=== PATIENT | female | born 2005 | race Caucasian/White ===

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

== ENCOUNTER 2023-04-13 08:15 | Outpatient (RCR) | payer BC, SELFPAY | END 2023-04-15 11:25 | disposition home or self-care (01) | PROVIDERS: PCP Pediatrics; Visit Provider Pediatrics | DX: M54.40 Lumbago with sciatica, unspecified side (principal); M43.06 Spondylolysis, lumbar region; M51.36 Other intervertebral disc degeneration, lumbar region; M47.819 Spondylosis without myelopathy or radiculopathy, site unspecified; Z51.89 Encounter for other specified aftercare | CPT/HCPCS: 97110; 97140; 97161 ==

== ENCOUNTER 2024-05-11 09:30 | Outpatient (RCR) | payer BC, SELFPAY ==
--- OUTSIDE RECORDS SUMMARY | 2024-02-17 07:55 | XMS_ITS | Continuity of Care Document ---
Author Name [email or web address] Address Unknown Organization Unknown Address Unknown Procedures FILTER APPLIED:Only known Procedures with Onset Date within the last 5 years Procedure Date Procedure Provider Additional Inform ation Status THERAPEUTIC EXERCISES (99554) Completed PT EVAL LOW COMPLEX 20 MIN (44360) Completed MANUAL THERAPY 1/ [facility] (49867) Completed Encounters FILTER APPLIED:Only known Encounters with Admission Date within the last 5 years Encounter Location Admission Discharge Billing Code Railroad Maintenance Clerk [facility] Outpatient Sheri Capps
--- OUTSIDE RECORDS SUMMARY | 2024-02-17 07:55 | XMS_ITS | Clinical Summary ---
Author Organization [facility] Address [address] [place] [id number] Care Team Providers Care Stock Sheets Cleaner Inspector Name Role Phone Sheri Capps MD Primary Care Provider [phone] Medications magnesium oxide (MAG-OX) 400 MG tablet Take 400 mg by mouth daily 0 12/16/2018 Active propranolol (INDERAL) 40 MG tablet Take 40 mg by mouth 2 times daily 11 07/29/2018 Active riboflavin (VITAMIN B-2) 100 MG TABS tablet Take 400 mg by mouth daily 0 12/16/2018 Active Cyanocobalamin (B-12) 1000 MCG TBCR Take 500 mcg by mouth Active vitamin D3 (CHOLECALCIFEROL ) 1.25 MG (06062 UT) capsule Take 400 Units by mouth every 7 days Active Active Problems Problem Noted Date Diagnosed Date Autonomic dysfunction 01/10/2019 Social History Tobacco Use Types Packs/Day Years Used Date Smoking Tobacco: Never Smokeless Tobacco: Never PHQ-2 Answer Date Recorded PHQ-2 Score 0 01/10/2019 Comments Unknown Sex and Gender Information Value Date Recorded Sex Assigned at Not on file Legal Sex Female 3:58 PM COSTUME SEAMSTRESS Gender Identity Not on file Sexual Orientation Not on file Last Filed Vital Signs Vital Sign Reading Time Taken Comments Blood Pressure 101/61 01/10/2019 8:13 AM COSTUME SEAMSTRESS Pulse 79 01/10/2019 8:13 AM COSTUME SEAMSTRESS Temperature - - Respiratory Rate 20 01/10/2019 8:11 AM COSTUME SEAMSTRESS Oxygen Saturation 99% 01/10/2019 8:11 AM COSTUME SEAMSTRESS Inhaled Oxygen Concentration - - Weight 61.4 kg (135 lb 5.8 oz) 01/10/2019 8:11 A M COSTUME SEAMSTRESS Height 164.2 cm (5' 4.65) 01/10/2019 8:11 AM CS T Body Mass Index 22.77 01/10/2019 8:11 AM COSTUME SEAMSTRESS Plan of Treatment Not on file Care Teams Stock Sheets Cleaner Inspector Relationship Specialty Start Date End Date Sheri Capps MD PCP - General Pediatrics 01/09/19
--- OUTSIDE RECORDS SUMMARY | 2024-02-17 07:55 | XMS_ITS | Clinical Summary ---
Author Organization [facility] Address [place], [place] [address] Care Team Providers Care Universal Grinder Set Up Operator Name Role Phone Sheri Capps MD Primary Care Provi alice Allergies Active Allergy Reactions Criticality Noted Date Comments Gluten Dizziness,Headache,N ause a And Vomiting 08/28/2019 Other reaction(s): Other (see comments) Prochlorperazine Respiratory Distress,Other - Describe In Comment Field,Dyspnea High 06/27/2019 Neck spasms Other reaction(s): GI intolerance Neck spasms Medications ketorolac (TORADOL) 30 mg/mL injectionIndic ations:Migrain e without aura and without status migrainosus, not intractable Inject 1 mL BY intramuscular ROUTE once daily if needed for Pain. 4 mL 02/03/20 24 Active ketorolac (TORADOL) 30 mg/mL injectionIndic ations:Migrain e without aura and without status migrainosus, not intractable Inject 1 mL (30 mg) intramuscular every 6 hours if needed for Pain. 5 mL 1 12/18/19 23 2023 Discontinued Active Problems Problem Noted Date Diagnosed Date Nasal turbinate hypertrophy 08/17/2019 Sinus pain 08/17/2019 Celiac disease 02/21/2019 Autonomic dysfunction 01/10/2019 Frequent headaches 09/15/2017 Ventricular septal defect Overview (12/28/2007): small and per cardiology no SBE prophylaxis needed Resolved Problems Problem Noted Date Diagnosed Date Resolved Date Tonsillar and adenoid hypertrophy 12/28/2007 05/29/2009 Encounters Date Type Department Care Team Description 01/31/[address] [facility] [address] [place] [address] Sheri Capps MD Refill Request (Ketorolac) from Last 3 Months Immunizations Name Administration Dates Next Due AMB Influenza, (Flumist) Laure e Intranasal,LAIV4 (Flu Clinic Only) 12/16/2007 DTaP 08/04/2004 SJeL-RasL-NEN (Pediarix) 2003,2003,0 2003 DTaP-IPV (Kinrix) 05/24/2008 HIB PRP-OMP (PedvaxHIB) 08/04/2004,11/06,2003,07/04 Hepatitis A (Peds) 05/29/2009,05/24/2008 Influenza, IIV3 (Age >=3 years) 12/20/2012,01/14 Influenza, IIV4 01/26/2019,11/19/2015,01/16/2014 Influenza, IIV4 (=>6mos) MDV 12/09/2017,12/09/19 17 MENINGOCOCCAL VACCINE 2 VIAL 2MO-55YO (MENVEO) 08/17/2019,09/17/2015 MMR 05/24/2008,05/05/2004 Pneumococcal conj 7-Valent (Prevnar 7) 0 08/04/2004,2003,2003,07/04 Tdap 09/17/2015 Varicella Vaccine 05/24/2008,05/05/2004 Family History Medical History Relation Name Comments Other Father migraines Arthritis Mother Diabetes Other maternal great grandpa Arthritis Sister Anesthesia Problem No Family History Blood Disease No Family History Cancer-breast No Family History Cancer-colon No Family History Heart Disease No Family History Hyperlipidemia No Family History Hypertension No Family History Relation Name Status Comments Father Mother Other Sister Social History Tobacco Use Types Packs/Day Years Used Date Smoking Tobacco: Never Smokeless Tobacco: Never Tobacco Cessation:Counseling Given: No Comments:No exposure Alcohol Use Standard Drinks/Week Comments No 0 (1 standard drink = 0.6 oz pur e alcohol) PHQ-2 Answer Date Recorded PHQ-2 TOTAL SCORE 0 12/17/2022 Social Connections Answer Date Recorded Do you often feel lonely or isolated from those around you? 0 12/17/2022 Financial Resource Strain Answer Date R ecorded Difficulty of Paying Living Expenses 3 12/17/2022 Difficulty of Paying Living Expenses Not on file 12/17/2022 Food Insecurity Answer Date Recorded Do you worry your food will run out before you are able to buy more? 1 12/17/2022 Transportation Needs Answer Date Record ed Does lack of transportation keep you from medica l appointments? 1 12/17/2022 Does lack of transportation keep you from work, meetings or getting things that you need? 1 12/17/2022 Housing Stability Answer Date Recorded What is your housing situation today? 1 12/17/2022 Comments No Sex and Gender Information Value Date Recorded Sex Assigned at Not on file Legal Sex Female 7:03 AM INDUSTRIAL PHARMACIST Gender Identity Not on file Sexual Orientation Not on file Obstetrics History Para Term AB IAB SAB Ectopic Multiple Livin g Live Births 0 0 0 0 0 0 0 0 0 0 0 Last Filed Vital Signs Vital Sign Reading Time Taken Comments Blood Pressure 106/66 12/17/2022 10:18 AM CDT Pulse 80 12/17/2022 10:18 AM CDT Temperature 36.9 C (98.4 F) 11/17/2021 3:22 PM CDT Respiratory Rate 16 03/13/2021 6:21 PM INDUSTRIAL PHARMACIST Oxygen Saturation 100% 12/17/2022 10:18 AM CDT Inhaled Oxygen Concentration - - Weight 63.3 kg (139 lb 9.6 oz) 12/17/2022 10:18 AM CDT Height 166.2 cm (5' 5.43) 12/17/2022 10:18 AM C DT Body Mass Index 22.92 12/17/2022 10:18 AM CDT Plan of Treatment Health Maintenance Due Date Last Done Comments HIV for age 15-65 05/02/2018 HPV series for age 9-26 (1 - 3-dose series) 05/02/2018 Hepatitis C screening for ag e 18-79 05/02/2021 Pneumococcal series for age 6-49 (1 of 2 - PCV) 05/02/2022 08/04/2004, 2003, 2003, Additional history exists COVID-19 vaccine series (2023- season) 2023 Influenza for age 9-49 10/17/2023 9, 12/09/2017, 12/08/2016, Additional history exists BMI (ht and wt on same day) for age 18+ 12/18/2023 12/17/2022 Depression screening for age 12+ 12/18/2023 12/17/2022, 04/11/2020, 03/22/2019, Additional history exists Well Child Check for age 3-20 12/18/2023, 05/05/2013, 05/29/2009, Additional history exists Tetanus booster 09/16/2025 09/17/2015 Tdap Completed 09/17/2015 Meningococcal series for age 11-21 Completed 2019, 09/17/2015 Insurance [employer] Care Teams Universal Grinder Set Up Operator Relationship Specialty Start Date End Date Sheri Capps MD [address] [place] [address] PCP - General 12/28/07
--- OUTSIDE RECORDS SUMMARY | 2024-02-17 07:55 | XMS_ITS | Encounter Summary ---
Author Organization [facility] Address [address] [place] [address] Care Team Providers Care Enzyme Chemist Name Role Phone Elsewhere, Pcp Primary Care Provider Unavailabl e Reason for Referral * Outpatient (Routine) - Authorized Specialty Diagnoses / Procedures Referred By Contac t Referred To Contact Diagnoses Chronic Migraine Procedures Botox for Chronic Migraine [place] CHEMODENERV FACIAL TRIGEM BALDOMERO [place] INJECTION,ONABOTULINUMTOXINA Pat Martinez APRN, C.N.P., M.S. [address] [place] [phone] Phone: tel: fax: [facility] Referral ID Status Reason Start Date Expiration Date V isits Requested Visits Authorized [id number] Authorized 12/23/2023 07/11/2024 4 2 ORT DUTY MANAGER Reason for Visit * Outpatient (Routine) - Authorized Specialty Diagnoses / Procedures Referred By Chivo t Referred To Contact Diagnoses Chronic Migraine Procedures Botox for Chronic Migraine [place] CHEMODENERV FACIAL TRIGEM [place]DOM[place] INJECTION,ONABOTULINUMTOXINA Pat Martinez APRN, C.N.P., M.S. [address] [place] [address] Phone: tel: fax: [facility] Referral ID Status Reason Start Date Expiration Date V isits Requested Visits Authorized [id number] Authorized 12/23/2023 07/11/2024 4 2 Encounter Details Date Type Department Care Team (Latest Contact Info) Description 01/14/2024 8:39 AM AIRPORT DUTY MANAGER - 01/14/2024 8:56 AM AIRPORT DUTY MANAGER Hospital Encounter Department of Neurology in [place], [place] [address] [place] [address] Polo Bains M.D., Ph.D. Anahy Ortiz P.A.-C., M.S. [address] [place] [address] Chronic Migraine Discharge Disposition: Home or Self Care Social History Tobacco Use Types Packs/Day Years Used Date Smoking Tobacco: Never Smokeless Tobacco: Never Alcohol Use Standard Drinks/Week Comments Never 0 (1 standard drink = 0.6 oz pur e alcohol) AUDIT-C Answer Date Recorded Q1: How often do you have a drink containing alc ohol? Never 04/29/2020 Average Number of Drinks Not on file 021 Frequency of Binge Drinking Not on file 04/15 PHQ-2 Answer Date Recorded PHQ-2 Score 3 12/22/2018 Nutrition Answer Date Recorded Nutrition: EVOO Fat Source Unknown 04/19 Nutrition: Servings of Fruits/Vegetables per Day Not on file 04/19/2020 Dental Answer Date Recorded Dental: Regular Dentist Unknown 04/20/19 21 Comments No Sex and Gender Information Value Date Recorded Sex Assigned at Not on file Legal Sex Female 4:53 PM AIRPORT DUTY MANAGER Gender Identity Not on file Sexual Orientation Not on file documented as of this encounter Medications at Time of Discharge cholecalciferol (VITAMIN D3) 1,250 mcg (50,000 Unit) capsule Take 400 Units by mouth. cyclobenzaprine (FLEXERIL) 1.25 mg tablet 10 mg. 3 cyproheptadine (PERIACTIN) 4 mg tablet Take 8 mg by mouth. cyproheptadine (PERIACTIN) 4 mg tablet TAKE 1 TABLET BY MOUTH ONCE DAILY AT BEDTIME FOR 1 WEEK, THEN INCREASE TO 2 TABLETS AT BEDTIME DAILY. 1 diclofenac (CATAFLAM) 50 mg tablet Take 50 mg by mouth. 0 Emgality Pen 120 mg/mL injection inject by subcutaneous route once monthly. 0 gabapentin (NEURONTIN) 100 mg capsule Take 300 mg by mouth. gabapentin (NEURONTIN) 300 mg capsule TAKE 1 CAPSULE BY MOUTH TWO TIMES DAILY FOR 4 DAYS, THEN 1 CAPSULE THREE TIMES DAILY 0 galcanezumab-gnlm (EMGALITY) 120 mg/mL injection 0 ketorolac (TORADOL) 10 mg tablet Take 10 mg by mouth. ketorolac (TORADOL) 30 mg/mL injection Inject intramuscularly. 0 magnesium oxide (MAG-OX) 400 mg (241.3 mg magnesium) tablet Take 400 mg by mouth. 9 ondansetron ODT (ZOFRAN-ODT) 4 mg disintegrating tablet Take 4 mg by mouth. rizatriptan (MAXALT) 10 mg tablet Take 1 tablet at the onset of your migraine. May repeat in 2 hours if necessary. Limit to 2 days per week. 0 TENS unit and electrodes (Cefaly) combo pack 1 each daily. 1 each 1 traZODone (DESYREL) 50 mg tablet Take 50 mg by mouth at bedtime. 1 venlafaxine XR (EFFEXOR-XR) 37.5 mg 24 hr capsule TAKE ONE CAPSULE BY MOUTH ONE TIME DAILY WITH A MEAL 1 documented as of this encounter Procedure Notes * nAahy Ortiz P.A.-C., M.S. - 01/14/2024 9:00 AM CSTAssociated Order(s): Botox for Chronic Migraine Pre-Procedure Diagnose(s): Chronic Migraine Post-Procedure Diagnose(s): Chronic Migraine Botox for Chronic Migraine Performed by: Anahy Ortiz P.A.-C., M.S. Authorized by: Pat Martinez APRN, C.N.P., M.S. Care team members present 1. Parag Andrews L.P.N. PROCEDURE DETAILS Pre-procedure pain score: 0/10 Injection of: 100 Units onabotulinumtoxinA 100 unit 50 Units onabotulinumtoxinA 50 unit Needle gauge: 30 Needle length: 0.5 in Injection site details [place] Guide / Procerus muscle(s): 5 units into the left senior reservoir engineer muscle, 5 units into the right senior reservoir engineer muscle and 5 units into the procerus muscle (15 units total). Superior Frontalis muscle(s): 5 units into the left superior frontalis muscle and 5 units into the right superior frontalis muscle (2 injection sites per muscle) (10 units total). Temporalis muscle(s): 12.5 units into the left temporalis muscle and 12.5 units into the right temporalis muscle (2 injection sites per muscle) (25 units total). Splenius Capitis muscle(s): 12.5 units into the left splenius capitis muscle and 12.5 units into the right splenius capitis muscle (2 injection sites per muscle) (25 units total). Occipitalis muscle(s): 12.5 units into the left occipitalis muscle and 12.5 units into the right occipitalis muscle (2 injection sites per muscle) (25 units total). Trapezius muscle(s): 25 units into the left trapezius muscle and 25 units into the right trapezius muscle (3 injection sites per muscle) (50 units total). Total units wasted: 0 Total units injected: 150 CONSENT Consent obtained: written (Risks, benefits and alternatives were discussed and a written Informed Consent was obtained. Please see Informed Consent form for further details.) UNIVERSAL PROTOCOL All relevant documentation and testing were reviewed and available. All required blood products, implants, devices and or special equipment were made available as applicable. Pre-procedure verification was conducted and the correct site was marked if required. A fire risk and smoke assessment were done as applicable. The procedural time-out to verify correct patient, correct side/site, and procedure was conducted prior to performing the procedure and confirmed in a procedural pause. PRE-PROCEDURE DETAILS Reason for injections: chronic migraine Appropriate hand hygiene, gown, cap, mask, protective eyewear, sterile gloves, skin preparation, sterile drape, and strict aseptic technique were utilized as applicable for the procedure: yes Site preparation: alcohol Clinical history: Patient was made aware that they may be responsible for any and all costs associated with injection of Botulinum Toxin Type A that is not covered by a third libertarian. Prior to treatment with Botox, the frequency of headaches was greater than 30 days per month and with significant impairment in the quality of life. Please see the initial Botox injection note and Headache consultation note regarding specific details of the headache history prior to the start of treatment. Any other daily migraine prophylactic treatments taken over the last 3 months: Venlafaxine (Effexor) and gabapentin Headache frequency when Botox is most effective (middle month in between rounds). Current headache days per month: 4 days Current severe headache days per month: 4 days Wearing off phenomenon prior to this round of Botox: yes Duration: 2 weeks Patient finds Botox treatment helpful and wants to repeat the treatment? yes Patient had migraine headache frequency reduction by at least 26 days per month compared to pretreatment level. POST-PROCEDURE DETAILS Procedure completed successfully: yes Complications: no apparent complications Comments Prior preventative medication trials: amitriptyline, propranolol and gabapentin (Emgality. Prior to Botox how many days per month did you miss work/school due to migraines? 12. Prior to Botox how many days per month did you miss out on family functions or home activities due to migraines? None. Prior to Botox did severe migraines cause symptoms that impacted your quality of life and ability to care for yourself? If yes, what symptoms? Yes. Nausea, sensitivity to light, aura and dizziness. With Botox how many days per month do you miss work/school due to migraines? None. With Botox how many days per month do you miss out on family functions or home activities due to migraines? None. How has Botox impacted your quality of life; are you able to do more at work/school or home?Yes. Botox Botox has made a big difference in my life - I am not missing any days at school and I am able to fully function. What migraine symptoms have you noted an improvement on since starting Botox? All of them have been significantly better ORT DUTY MANAGER documented in this encounter Plan of Treatment Upcoming Encounters Date Type Department Care Team (Late st Contact Info) Description 04/06/2024 9:45 AM AIRPORT DUTY MANAGER Appointment Department of Neurology in [place], [place] [address] [place] [address] Pat Martinez APRN, C.N.P., M.S. [address] [place] [address] Discharge Disposition: Home or Self Care documented as of this encounter Procedures Procedure Name Priority Date/Time Associated Diagnosis Comments [place] CHEMODENERV FACIAL TRIGEM BALDOMERO Routine 01/14/2024 9:00 AM AIRPORT DUTY MANAGER Chronic Migraine documented in this encounter Results * [place] CHEMODENERV FACIAL TRIGEM BALDOMERO (01/14/2024 9:00 AM AIRPORT DUTY MANAGER) Narrative [facility]ODAL - 01/14/2024 9:00 AM AIRPORT DUTY MANAGER Anahy Ortiz P.A.-C., M.S. 01/14/2024 8:55 AM Botox for Chronic Migraine Performed by: Anahy Ortiz P.A.-C., M.S. Authorized by: Pat Martinez APRN C.N.PRubia, M.S. Care team members present 1. Parag Andrews L.P.N. PROCEDURE DETAILS Pre-procedure pain score: 0/10 Injection of: 100 Units onabotulinumtoxinA 100 unit 50 Units onabotulinumtoxinA 50 unit Needle gauge: 30 Needle length: 0.5 in Injection site details [place] Guide / Procerus muscle(s): 5 units into the left senior reservoir engineer muscle, 5 units into the right senior reservoir engineer muscle and 5 units into the procerus muscle (15 units total). Superior Frontalis muscle(s): 5 units into the left superior frontalis muscle and 5 units into the right superior frontalis muscle (2 injection sites per muscle) (10 units total). Temporalis muscle(s): 12.5 units into the left temporalis muscle and 12.5 units into the right temporalis muscle (2 injection sites per muscle) (25 units total). Splenius Capitis muscle(s): 12.5 units into the left splenius capitis muscle and 12.5 units into the right splenius capitis muscle (2 injection sites per muscle) (25 units total). Occipitalis muscle(s): 12.5 units into the left occipitalis muscle and 12.5 units into the right occipitalis muscle (2 injection sites per muscle) (25 units total). Trapezius muscle(s): 25 units into the left trapezius muscle and 25 units into the right trapezius muscle (3 injection sites per muscle) (50 units total). Total units wasted: 0 Total units injected: 150 CONSENT Consent obtained: written (Risks, benefits and alternatives were discussed and a written Informed Consent was obtained. Please see Informed Consent form for further details.) UNIVERSAL PROTOCOL All relevant documentation and testing were reviewed and available. All required blood products, implants, devices and or special equipment were made available as applicable. Pre-procedure verification was conducted and the correct site was marked if required. A fire risk and smoke assessment were done as applicable. The procedural time-out to verify correct patient, correct side/site, and procedure was conducted prior to performing the procedure and confirmed in a procedural pause. PRE-PROCEDURE DETAILS Reason for injections: chronic migraine Appropriate hand hygiene, gown, cap, mask, protective eyewear, sterile gloves, skin preparation, sterile drape, and strict aseptic technique were utilized as applicable for the procedure: yes Site preparation: alcohol Clinical history: Patient was made aware that they may be responsible for any and all costs associated with injection of Botulinum Toxin Type A that is not covered by a third libertarian. Prior to treatment with Botox, the frequency of headaches was greater than 30 days per month and with significant impairment in the quality of life. Please see the initial Botox injection note and Headache consultation note regarding specific details of the headache history prior to the start of treatment. Any other daily migraine prophylactic treatments taken over the last 3 months: Venlafaxine (Effexor) and gabapentin Headache frequency when Botox is most effective (middle month in between rounds). Current headache days per month: 4 days Current severe headache days per month: 4 days Wearing off phenomenon prior to this round of Botox: yes Duration: 2 weeks Patient finds Botox treatment helpful and wants to repeat the treatment? yes Patient had migraine headache frequency reduction by at least 26 days per month compared to pretreatment level. POST-PROCEDURE DETAILS Procedure completed successfully: yes Complications: no apparent complications Comments Prior preventative medication trials: amitriptyline, propranolol and gabapentin (Emgality. Prior to Botox how many days per month did you miss work/school due to migraines? 12. Prior to Botox how many days per month did you miss out on family functions or home activities due to migraines? None. Prior to Botox did severe migraines cause symptoms that impacted your quality of life and ability to care for yourself? If yes, what symptoms? Yes. Nausea, sensitivity to light, aura and dizziness. With Botox how many days per month do you miss work/school due to migraines? None. With Botox how many days per month do you miss out on family functions or home activities due to migraines? None. How has Botox impacted your quality of life; are you able to do more at work/school or home?Yes. Botox Botox has made a big difference in my life - I am not missing any days at school and I am able to fully function. What migraine symptoms have you noted an improvement on since starting Botox? All of them have been significantly better us Pat Martinez APRN, C.N.P., M.S. NEUROLOG Y ORDERABLES Final Result MMODAL NA documented in this encounter Visit Diagnoses Diagnosis Chronic Migraine documented in this encounter Administered Medications Inactive Administered Medications - up to 3 most recent administrations Medication Order MAR Action Action Date Dose Rate Site onabotulinumtoxinA injection 100 Units (Botox) 100 Units, injection, One-Time Injection, Starting on Wed01/14/24 at 0900, For 1 doseIndications:Chronic Migraine Given 01/14/2024 9:00 AM AIRPORT DUTY MANAGER 100 Units Other onabotulinumtoxinA injection 50 Units (Botox Cosmetic) 50 Units, injection, One-Time Injection, Starting on Wed01/14/24 at 0900, For 1 doseIndications:Chronic Migraine Given 01/14/2024 9:00 AM AIRPORT DUTY MANAGER 50 Units Other documented in this encounter Care Teams Enzyme Chemist Relationship Specialty Start Date End Date Elsewhere, Pcp PCP - General Internal Medicine 12/23/22 documented as of this encounter
--- OUTSIDE RECORDS SUMMARY | 2024-02-17 07:55 | XMS_ITS | Clinical Summary ---
Author Organization [facility] [employer] Address [address] [place] [address] Care Team Providers Care Underground Supervisor Name Role Phone Inactive, Administrativel Primary Care Provider Source Comments If you need additional information that is not available on Care Everywhere, please contact our Medical Records Department during business hours (Wednesday - Wednesday, 8 am - 5 pm) at . During nonbusiness hours, please contact our Trauma and Emergency Center at [facility] Social History Tobacco Use Types Packs/Day Years Used Date Smoking Tobacco: Never Assessed Comments Unknown Sex and Gender Information Value Date Recorded Sex Assigned at Not on file Legal Sex Female 12:56 PM BUSINESS PROJECT ANALYST Gender Identity Not on file Sexual Orientation Not on file Plan of Treatment Health Maintenance Due Date Last Done Comments DEPRESSION/ANXIETY PHQ4 2015 HPV Vaccine (1 - 3-dose series) 05/02/2018 CHLAMYDIA SCREEN 2019 LIPID SCREEN 05/02/2021 WELLNESS VISIT 05/02/2021 DTaP/Tdap/Td Vaccine (1 - Tdap) 05/02/2022 Hepatitis B Vaccine (1 of 3 - 19+ 3-dose series) 05/02/2022 PERTUSSIS 05/02/2022 COVID-19 Vaccine ( - 2023-2 5 season) 2023 Influenza Vaccine (#1) 2023 RSV Vaccines (1 - 1-dose 75+ series) 05/02/2078 POLIO (IPV) Vaccine Aged Out No longe r eligible based on patient's age to complete this topic Pneumococcal Vaccine: Pediat rics (0 to 5 Years) and At-Risk Patients (6 to 49 Years) Aged Out No longer eligi ble based on patient's age to complete this topic Care Teams Underground Supervisor Relationship Specialty Start Date End Date Inactive, Administrativel [phone] [facility] [address] PCP - General 01/06/15
--- OUTSIDE RECORDS SUMMARY | 2024-02-17 07:55 | XMS_ITS | Encounter Summary ---
Author Organization [facility] Address [address] [place] [address] Care Team Providers Care E Commerce Solution Architect Name Role Phone Elsewhere, Pcp Primary Care Provider Unavailabl e Encounter Details Date Type Department Care Team (Late Contact Info) Description 12/23/2023 Clinical Communication Department of Neurology in [place], [place] [address] [place] [phone] Pat Martinez APRN, C.N.P., M.S. [address] [place] [phone] Social History Tobacco Use Types Packs/Day Years [...] on file Legal Sex Female 4:53 PM ENGINEER AND GEOLOGIST Gender Identity Not on file Sexual Orientation Not on file documented as of this encounter Plan of Treatment Upcoming Encounters Date Type Department Care Team (Late Contact Info) Description 04/06/2024 9:45 AM ENGINEER AND GEOLOGIST Appointment Department of Neurology in [place], [place] [address] [place] [phone] Pat Martinez APRN, C.N.P., M.S. [address] [place] [address] Discharge Disposition: Home or Self Care documented as of this encounter Visit Diagnoses Not on filedocumented in this encounter Care Teams E Commerce Solution Architect Relationship Specialty Start Date End Date Elsewhere, Pcp PCP - General Internal Medicine 12/23/22 documented as of this encounter
--- OUTSIDE RECORDS SUMMARY | 2024-02-17 07:55 | XMS_ITS | Referral Summary ---
Author Organization [facility] Address [address] [place] [address] Care Team Providers Care Elderly Companion Name Role Phone Sheri Capps MD Primary Care Provider [phone] Medications magnesium oxide (MAG-OX) 400 MG tablet [...] Active vitamin D3 (CHOLECALCIFEROL ) 1.25 MG (57363 UT) capsule Take 400 Units by mouth [...] on file Legal Sex Female 3:58 PM EVENT EXECUTIVE Gender Identity Not on file Sexual Orientation Not on file Last Filed Vital Signs Vital Sign Reading Time Taken Comments Blood Pressure 101/61 01/10/2019 8:13 AM EVENT EXECUTIVE Pulse 79 01/10/2019 8:13 AM EVENT EXECUTIVE Temperature - - Respiratory Rate 20 01/10/2019 8:11 AM EVENT EXECUTIVE Oxygen Saturation 99% 01/10/2019 8:11 AM EVENT EXECUTIVE Inhaled Oxygen Concentration - - Weight 61.4 kg (135 lb 5.8 oz) 01/10/2019 8:11 A M EVENT EXECUTIVE Height 164.2 cm (5' 4.65) 01/10/2019 8:11 AM CS T Body Mass Index 22.77 01/10/2019 8:11 AM EVENT EXECUTIVE Plan of Treatment Not on file Care Teams Elderly Companion Relationship Specialty Start Date End Date Sheri Capps MD PCP - General Pediatrics 01/09/19
--- OUTSIDE RECORDS SUMMARY | 2024-02-17 07:55 | XMS_ITS | Encounter Summary ---
Author Organization [facility] Address [address] [place] [address] Care Team Providers Care Sanitarian Inspector Name Role Phone Elsewhere, Pcp Primary Care Provider Unavailabl e Reason for Referral * Outpatient (Routine) - Authorized Specialty Diagnoses / Procedures Referred By Chivo t Referred To Contact Diagnoses Chronic Migraine Procedures Botox for Chronic Migraine [place] CHEMODENERV FACIAL TRIGEM BALDOMERO [place] INJECTION,ONABOTULINUMTOXINA Pat Martinez APRN, C.N.P., M.S. [address] [place] [phone] Phone: tel: fax: [facility] Referral ID Status Reason Start Date Expiration Date V isits Requested Visits Authorized [id number] Authorized 12/23/2023 07/11/2024 4 2 T WORKER Encounter Details Date Type Department Care Team (Late st Contact Info) Description 12/23/2023 Orders Only Department of Neurology in [place], [place] [address] [place] [phone] Pat Martinez APRN, C.N.P., M.S. [address] [place] [phone] Chronic Migraine (Primary Dx) Social History Tobacco Use Types Packs/Day Years [...] on file Legal Sex Female 4:53 PM PLANT WORKER Gender Identity Not on file Sexual Orientation Not on file documented as of this encounter Plan of Treatment Upcoming Encounters Date Type Department Care Team (Late st Contact Info) Description 04/06/2024 9:45 AM PLANT WORKER Appointment Department of Neurology in [place], [place] [address] [place] [address] Pat Martinez APRN, C.N.P., M.S. [address] [place] [address] Discharge Disposition: Home or Self Care Scheduled Orders Name Type Priority Associated Diagnoses Orde r Schedule Botox for Chronic Migraine Procedures Routine Chronic Migraine 4 Occurrences starting 12/23/2023 until 03/24/2025, 1 completed documented as of this encounter Results * [place] CHEMODENERV FACIAL TRIGEM BALDOMERO (01/14/2024 9:00 AM PLANT WORKER) Narrative [facility]ODAL - 01/14/2024 9:00 AM PLANT WORKER Anahy Ortiz P.A.-C., M.S. 01/14/2024 8:55 AM Botox for Chronic Migraine Performed by: Anahy Ortiz P.A.-C., M.S. Authorized by: Pat Martinez APRN, C.N.P., M.S. Care team members present 1. Parag Andrews L.P.N. PROCEDURE DETAILS Pre-procedure pain score: 0/10 Injection of: 100 Units onabotulinumtoxinA 100 unit 50 Units onabotulinumtoxinA 50 unit Needle gauge: 30 Needle length: 0.5 in Injection site details Director Of Vocational Guidance / Procerus muscle(s): 5 units into the left principal hardware architect muscle, 5 units into the right principal hardware architect muscle and 5 units into the procerus [...] that is not covered by a third democrat. Prior to treatment with Botox, the frequency [...] in this encounter Visit Diagnoses Diagnosis Chronic Migraine- Primary Chronic Migraine documented in this encounter Care Teams Sanitarian Inspector Relationship Specialty Start Date End Date Elsewhere, Pcp PCP - General Internal Medicine 12/23/22 documented as of this encounter
--- OUTSIDE RECORDS SUMMARY | 2024-02-17 07:55 | XMS_ITS | Referral Summary ---
Author Organization [facility] Address [address] [place] [id number] Care Team Providers Care Industrial Insulator Name Role Phone Elsewhere, Pcp Primary Care Provider Unavailabl e Source Comments Patient records contain information from all sites at [facility]. For routine questions regarding patient records, call [phone] during business hours, M-F 8:00 AM - 5:00 PM Central Time. Record requests for emergency care only can be directed to [phone] at any time.[facility] Encounters Date Type Department Care Team Description 01/14/2024 8:39 AM DISTRIBUTING CLERK - 01/14/2024 8:56 AM DISTRIBUTING CLERK Hospital Encounter Department of Neurology in [place], [place] [address] [place] [phone] Polo Bains M.D., Ph.D. Anahy Ortiz POnel.Rozina., M.S. Chronic Migraine Discharge Disposition: Home or Self Care 12/23/2023 Orders Only Department of Neurology in [place], [place] [address] [place] [phone] Pat Martinez APRN C.N.P., M.S. Chronic Migraine (Primary Dx) 12/23/2023 Clinical Communication Department of Neurology in [place], [place] [address] [place] [phone] Pat Martinez APRN C.N.P., M.S. from Last 3 Months Allergies Active Allergy Reactions Criticality Noted Date Comments Gluten Other (see comments),Headache,Nausea And Vomiting 08/28/2019 Prochlorperazine GI intolerance,Short ness of breath (Reselect Reaction) High 06/27/2019 Neck spasms Medications * This document contains information received from the source organization and may not represent a complete record from that organization. cholecalciferol (VITAMIN D3) 1,250 mcg (50,000 Unit) capsule Take 400 Units by mouth. Active cyproheptadine (PERIACTIN) 4 mg tablet Take 8 mg by mouth. Active cyproheptadine (PERIACTIN) 4 mg tablet TAKE 1 TABLET BY MOUTH ONCE DAILY AT BEDTIME FOR 1 WEEK, THEN INCREASE TO 2 TABLETS AT BEDTIME DAILY. 02/23/19 21 Active diclofenac (CATAFLAM) 50 mg tablet Take 50 mg by mouth. 07/04/19 20 Active gabapentin (NEURONTIN) 100 mg capsule Take 300 mg by mouth. Active gabapentin (NEURONTIN) 300 mg capsule TAKE 1 CAPSULE BY MOUTH TWO TIMES DAILY FOR 4 DAYS, THEN 1 CAPSULE THREE TIMES DAILY 09/28/19 20 Active galcanezumab-gnlm (EMGALITY) 120 mg/mL injection 10/13/19 Active Emgality Pen 120 mg/mL injection inject by subcutaneous route once monthly. 12/21/19 20 Active ketorolac (TORADOL) 10 mg tablet Take 10 mg by mouth. Active ketorolac (TORADOL) 30 mg/mL injection Inject intramuscularly. 07/24/19 20 Active magnesium oxide (MAG-OX) 400 mg (241.3 mg magnesium) tablet Take 400 mg by mouth. 12/17/19 19 Active ondansetron ODT (ZOFRAN-ODT) 4 mg disintegrating tablet Take 4 mg by mouth. Active rizatriptan (MAXALT) 10 mg tablet Take 1 tablet at the onset of your migraine. May repeat in 2 hours if necessary. Limit to 2 days per week. 01/17/20 20 Active TENS unit and electrodes (Cefaly) combo pack 1 each daily. 1 each 02/26/19 21 Active venlafaxine XR (EFFEXOR-XR) 37.5 mg 24 hr capsule TAKE ONE CAPSULE BY MOUTH ONE TIME DAILY WITH A MEAL 04/11/19 21 Active traZODone (DESYREL) 50 mg tablet Take 50 mg by mouth at bedtime. 04/11/19 21 Active cyclobenzaprine (FLEXERIL) 1.25 mg tablet 10 mg. 03/13/19 23 Active Active Problems No known active problems Immunizations Name Administration Dates Next Due Tdap 12/23/2022 Social History Tobacco Use Types Packs/Day Years [...] on file Legal Sex Female 4:53 PM DISTRIBUTING CLERK Gender Identity Not on file Sexual Orientation Not on file Last Filed Vital Signs Vital Sign Reading Time Taken Comments Blood Pressure 119/72 12/23/2022 12:50 PM DISTRIBUTING CLERK Pulse 79 12/23/2022 12:50 PM DISTRIBUTING CLERK Temperature 37 C (98.6 F) 12/23/2022 12:50 PM DISTRIBUTING CLERK Respiratory Rate 16 12/23/2022 12:50 PM DISTRIBUTING CLERK Oxygen Saturation 100% 12/23/2022 12:50 PM DISTRIBUTING CLERK Inhaled Oxygen Concentration - - Weight 65.5 kg (144 lb 6.4 oz) 12/23/2022 12:49 PM DISTRIBUTING CLERK Height 163.8 cm (5' 4.49) 02/27/2020 1:10 PM CS T Body Mass Index - - Plan of Treatment Upcoming Encounters Date Type Department Care Team (Late st Contact Info) Description 04/06/2024 9:45 AM DISTRIBUTING CLERK Appointment Department of Neurology in [place], [place] 200 [place] [phone] Pat Martinez APRN, C.N.P., M.S. 200 [place] [phone] Discharge Disposition: Home or Self Care Procedures Procedure Name Priority Date/Time Associated Diagnosis Comments [place] CHEMODENERV FACIAL TRIGEM BALDOMERO Routine 01/14/2024 9:00 AM DISTRIBUTING CLERK Chronic Migraine from Last 3 Months Results * [place] CHEMODENERV FACIAL TRIGEM BALDOMERO (01/14/2024 9:00 AM DISTRIBUTING CLERK) Narrative [facility]ODAL - 01/14/2024 9:00 AM DISTRIBUTING CLERK Anahy Ortiz P.A.-C., M.S. 01/14/2024 8:55 AM Botox for Chronic Migraine Performed by: Anahy Ortiz P.A.-C., M.S. Authorized by: Pat Martinez APRN C.N.PRubia, M.S. Care team members present 1. Parag Andrews L.P.N. PROCEDURE DETAILS Pre-procedure pain score: 0/10 Injection of: 100 Units onabotulinumtoxinA 100 unit 50 Units onabotulinumtoxinA 50 unit Needle gauge: 30 Needle length: 0.5 in Injection site details Hiv Prevention Specialist / Procerus muscle(s): 5 units into the left costing analyst muscle, 5 units into the right costing analyst muscle and 5 units into the procerus [...] that is not covered by a third alliance party. Prior to treatment with Botox, the frequency [...] All of them have been significantly better Pat Martinez APRN C.N.P., M.S. NEUROLOG Y ORDERABLES Final Result [facility] NA from Last 3 Months Insurance [facility] Care Teams Industrial Insulator Relationship Specialty Start Date End Date Elsewhere, Pcp PCP - General Internal Medicine 12/23/22
--- OUTSIDE RECORDS SUMMARY | 2024-02-17 07:55 | XMS_ITS | Clinical Summary ---
Author Organization [facility] Address [address] [place] [address] Care Team Providers Care Nail Setter Name Role Phone Elsewhere, Pcp Primary Care Provider Unavailabl e Source Comments Patient records contain information from all sites at [facility]. For routine questions regarding patient records, call [phone] during business hours, M-F 8:00 AM - 5:00 PM Central Time. Record requests for emergency care only can be directed to [phone] at any time.[facility] Allergies Active Allergy Reactions Criticality Noted Date [...] Active galcanezumab-gnlm (EMGALITY) 120 mg/mL injection 10/13/19 20 Active Emgality Pen 120 mg/mL injection inject [...] Active Active Problems No known active problems Encounters Date Type Department Care Team Description 01/14/2024 8:39 AM MULTI SENSOR OPERATOR - 01/14/2024 8:56 AM [facility] Hospital Encounter Department of Neurology in [place], [place] [address] [place] [phone] Polo Bains M.D., Ph.D. Anahy Ortiz, P.A.-C., M.S. Chronic Migraine Discharge Disposition: Home or Self Care 12/23/2023 Orders Only Department of Neurology in [place], [place] [address] [place] [phone] Pat Martinez APRN, C.N.P., M.S. Chronic Migraine (Primary Dx) 12/23/2023 Clinical Communication Department of Neurology in [place], [place] [address] [place] [phone] Pat Martinez APRN, C.N.P., M.S. from Last 3 Months Immunizations Name Administration Dates Next Due Tdap [...] on file Legal Sex Female 4:53 PM MULTI SENSOR OPERATOR Gender Identity Not on file Sexual Orientation Not on file Last Filed Vital Signs Vital Sign Reading Time Taken Comments Blood Pressure 119/72 12/23/2022 12:50 PM MULTI SENSOR OPERATOR Pulse 79 12/23/2022 12:50 PM MULTI SENSOR OPERATOR Temperature 37 C (98.6 F) 12/23/2022 12:50 PM MULTI SENSOR OPERATOR Respiratory Rate 16 12/23/2022 12:50 PM MULTI SENSOR OPERATOR Oxygen Saturation 100% 12/23/2022 12:50 PM MULTI SENSOR OPERATOR Inhaled Oxygen Concentration - - Weight 65.5 kg (144 lb 6.4 oz) 12/23/2022 12:49 PM MULTI SENSOR OPERATOR Height 163.8 cm (5' 4.49) 02/27/2020 1:10 PM CS T Body Mass Index - - Plan of Treatment Upcoming Encounters Date Type Department Care Team (Late st Contact Info) Description 04/06/2024 9:45 AM MULTI SENSOR OPERATOR Appointment Department of Neurology in [place], [place] [address] [place] [phone] Pat Martinez APRN, C.N.P., M.S. 200 [place] [phone] Discharge Disposition: Home or Self Care Health Maintenance Due Date Last Done Comments Chlamydia and Gonorrhea Screening 2003 HIV Screening 2003 Hepatitis C Screening 2003 TB Screening during Well Child Visit 2003 1 week Well Child Check-Up 2003 1 month Well Child Check-Up 2003 2 month Well Child Check-Up 2003 4 month Well Child Check-Up 2003 6 month Well Child Check-Up 2003 9 month Well Child Check-Up 01/03/2004 12 month Well Child Check-Up 04/04/2004 15 month Well Child Check-Up 07/02/2004 18 month Well Child Check-Up 10/02/2004 2 year Well Child Check-Up 04/04/2005 30 month Well Child Check-Up 10/02/2005 3 year Well Child Check-Up 04/04/2006 Well Child Check-Up Completed in Past Year 04/04/2006 4 year Well Child Check-Up 04/04/2007 5 year Well Child Check-Up 04/04/2008 6 year Well Child Check-Up 04/04/2009 7 year Well Child Check-Up 04/04/2010 8 year Well Child Check-Up 04/04/2011 9 year Well Child Check-Up 04/04/2012 10 year Well Child Check-Up 04/04/2013 11 year Well Child Check-Up 04/04/2014 12 year Well Child Check-Up 04/04/2015 11 year Well Child Check-Up 04/04/2016 12 year Well Child Check-Up 04/04/2017 Vision Screening during Well Child Visit 05/02/2017 13 year Well Child Check-Up 04/04/2018 HPV Vaccines (1 - 3-dose series) 05/02/2018 14 year Well Child Check-Up 04/04/2019 15 year Well Child Check-Up 04/04/2020 18 year Well Child Check-Up 04/04/2021 17 year Well Child Check-Up 04/04/2022 Depression Screening (Annual PHQ-2) 02/15/2023 20 year Well Child Check-Up 04/04/2023 Well Child Check-Up (WCC) 04/04/2023 COVID-19 Vaccine ( season) 2023 Influenza Vaccine (#1) 2023 9, 12/09/2017, 12/08/2016, Additional history exists DTaP,Tdap,and Td Vaccines (8 - Td or Tdap) 12/23/2032 12/23/2022, 09/17/2015, 05/24/2008, Additional history exists Hepatitis B Vaccines Completed 2003, 2003, 2003 Pneumococcal vaccine (0-49 years) Aged Out 08/04/2004, 2003, 2003, Additional history exists No longer eligible based on patient's age to complete this topic IPV Vaccines Completed 05/24/2008, 10/17, 2003, Additional history exists Meningococcal Vaccine Completed 08/17/2019, 016 Anemia/Iron Deficiency Screening During Well Child Visit (if High Risk Menstruating Female) Completed 11/17/2021, 08/17/2019 Procedures Procedure Name Priority Date/Time Associated Diagnosis Comments CT CHEMODENERV FACIAL TRIGEM BALDOMERO Routine 01/14/2024 9:00 AM MULTI SENSOR OPERATOR Chronic Migraine from Last 3 Months Results * CT CHEMODENERV FACIAL TRIGEM BALDOMERO (01/14/2024 9:00 AM MULTI SENSOR OPERATOR) Narrative MMODAL - 01/14/2024 9:00 AM MULTI SENSOR OPERATOR Anahy Ortiz P.A.-C., M.S. 01/14/2024 8:55 AM Botox for Chronic Migraine Performed by: Anahy Ortiz P.A.-C., M.S. Authorized by: Pat Martinez APRN C.N.P., M.S. Care team members present 1. Parag Andrews, L.P.N. PROCEDURE DETAILS Pre-procedure pain score: 0/10 Injection of: 100 Units onabotulinumtoxinA 100 unit 50 Units onabotulinumtoxinA 50 unit Needle gauge: 30 Needle length: 0.5 in Injection site details Slice Cutting Machine Operator / Procerus muscle(s): 5 units into the left merchandising consultant muscle, 5 units into the right merchandising consultant muscle and 5 units into the procerus [...] [facility]AL NA from Last 3 Months Insurance [facility] [address] Care Teams Nail Setter Relationship Specialty Start Date End Date Elsewhere, Pcp PCP - General Internal Medicine 12/23/22
--- OUTSIDE RECORDS SUMMARY | 2024-02-17 07:55 | XMS_ITS ---
Author Organization [facility] Address [address] [place] [address] Care Team Providers Care Closing Specialist Name Role Phone Unavailable Unavailable Unavailable Surgery Details Not on file Complications Check Surgery Details section. Procedure Estimated Blood Loss Check Surgery Details section. Procedure Findings Check Surgery Details section. Procedure Specimens Taken Check Surgery Details section.
== END 2024-06-12 09:42 | disposition home or self-care (01) ==
PROVIDERS: PCP Pediatrics; Visit Provider Orthopaedic Surgery
DX: Z47.89 Encounter for other orthopedic aftercare (principal); Z51.89 Encounter for other specified aftercare
CPT/HCPCS: 97110; 97140; 97162